=== PATIENT | female | born 1955 | race Caucasian/White ===

== ENCOUNTER 2022-05-08 08:17 | Outpatient (CLI) | payer BC, SELFPAY ==
--- NOTE | 2022-05-08 08:15 | CRLHL7_ITS ---
For Patients: As a result of the Century Cures Act, medical imaging exams and procedure reports are released immediately into your electronic medical record. You may view this report before your referring provider. If you have questions, please contact your health care provider. BILATERAL SCREENING MAMMOGRAM WITH COMPUTER-AIDED DETECTION AND TOMOSYNTHESIS TECHNIQUE: CC and MLO views were obtained. These mammographic images have been obtained using full-field digital technique. These mammographic images were interpreted with the benefit of computer-aided detection. Breast Tomosynthesis was used in this interpretation. COMPARISON FILM: 03/13/21, 03/01/20, 03/01/19. FINDINGS: The breasts are heterogeneously dense, which may obscure small masses IMPRESSION: There is no radiographic evidence for malignancy. ASSESSMENT: BI-RADS Category 1: Negative RECOMMENDATION: Routine screening mammogram in 1 year. A lay language report of this examination will be provided to the patient. Claude Solomon M.D. Diagnostic Radiologist [email or web address] ANTONELLA/Dictated by: Claude Solomon MD @ 05/08/2022 11:51:00 AM (Electronically Signed)
--- OUTSIDE RECORDS SUMMARY | 2022-05-08 08:19 | XMS_ITS | Clinical Summary ---
:1955 Author Organization [facility] [place] [address] Care Team Providers Name Role Phone Hiral Davalos MD Primary Care Provider Allergies Active Allergy Reactions Severity Noted Date Comments Sulfa (Sulfonamide Antibiotics) *Unknown 0 Medications Medication Sig Dispensed Refills Start Date End Date Status lisinopril-hydrochlor Take 1 tablet by 0 02/17/2020 Active othiazide (10-12.5 mouth once daily. mg) tablet (PRINZIDE; ZESTORETIC) metoprolol succinate Take 1 Tablet (25 90 Tablet 3 07/18/2021 Active (TOPROL XL) 25 mg mg) by mouth once Sustained-Release daily. tabletIndications: SVT (supraventricular tachycardia) (HC) apixaban (Eliquis) 5 Take 1 Tablet (5 180 tablet. 0 12/12/2021 Active mg tabletIndications: mg) by mouth in SVT (supraventricular the morning and 1 tachycardia) (HC) Tablet (5 mg) in the evening. Needs appt for further refills. Call [facility] for appt.. Active Problems Not on file Social History Tobacco Use Types Packs/Day Years Used Date Never Smoker Smokeless Tobacco: Never Used Alcohol Use Standard Drinks/Week Comments Yes 0 (1 standard drink = 0.6 oz pure alcoho l) occ Alcohol Habits Answer Date Recorded How often do you have a drink containing alcohol? Not asked How many drinks containing alcohol do you have on a typical Not asked day when you are drinking? How often do you have six or more drinks on one occasion? No t asked Comment: occ 05/21/2021 Sex Assigned at Date Recorded Female 07/16/2021 10:35 AM ENVIRONMENTAL SERVICES TECH Obstetrics History Last Filed Vital Signs Vital Sign Reading Time Taken Comments Blood Pressure 128/80 07/18/2021 9:32 AM ENVIRONMENTAL SERVICES TECH Pulse 96 07/18/2021 9:32 AM ENVIRONMENTAL SERVICES TECH Temperature 36.8 ??C (98.3 ??F) 05/21/2021 12:00 PM ENVIRONMENTAL SERVICES TECH Respiratory Rate 16 05/21/2021 12:00 PM ENVIRONMENTAL SERVICES TECH Oxygen Saturation 95% 07/18/2021 9:32 AM ENVIRONMENTAL SERVICES TECH Inhaled Oxygen Concentration - - Weight 68.5 kg (151 lb) 07/18/2021 9:32 AM ENVIRONMENTAL SERVICES TECH Height 167.6 cm (5' 5.98) 07/18/2021 9:32 AM ENVIRONMENTAL SERVICES TECH Body Mass Index 24.38 07/18/2021 9:32 AM ENVIRONMENTAL SERVICES TECH Plan of Treatment Health Maintenance Due Date Last Done Comments Tdap 1968 Depression screening for age 12+ 1969 HIV for age 15-65 1972 Hepatitis C screening for age 0611/29/1975 18-79 Tetanus booster 1977 Colonoscopy through age 75 2002 Lipids for age 45-75 2002 Mammogram for age 45-75 2002 Zoster (shingles) series for age 0611/29/2007 50+ (1 of 2) COVID-19 vaccine series (4 - 06/18/2021 04/23/2021, 021, Booster for Moderna series) 08/24/2020 Influenza for age 50-64 02/06/2022 BMI (ht and wt on same day) for 07/18/2022 07/18/2021, 04/08 age 18+ Pap test for age 21-65 02/08/2024 02/07/2021, 02/07/2021, 04/17/2015, Additional history exists Results Not on filefrom Last 3 Months Insurance Payer Benefit Plan / Subscriber ID Effective Dates Phone Addre ss Type Group BLUE [employer]OSS BL[employer] OF [id number] 2021-Presen [address] [facility] [place] [address] (Work) [id number] Care Teams Barrelhead Inspector Relationship Specialty Start Date End Date Hiral Davalos MD PCP - General Internal Medicine 04/17/21[address] [place] [address]
== END 2022-05-08 08:18 | disposition home or self-care (01) ==
LOC: MAMMO 08:18
PROVIDERS: PCP Internal Medicine; Visit Provider Internal Medicine
DX: Z12.31 Encounter for screening mammogram for malignant neoplasm of breast (principal)
CPT/HCPCS: 77063; 77067

== ENCOUNTER 2023-06-16 10:09 | Outpatient (CLI) | payer MEDICARE, OTHER, SELFPAY ==
--- NOTE | 2023-06-16 10:15 | CRLHL7_ITS ---
For Patients: As a result of the Century Cures Act, medical imaging exams and procedure reports are released immediately into your electronic medical record. You may view this report before your referring provider. If you have questions, please contact your health care provider. BILATERAL SCREENING MAMMOGRAM WITH COMPUTER-AIDED DETECTION AND TOMOSYNTHESIS TECHNIQUE: CC and MLO views were obtained. These mammographic images have been obtained using full-field digital technique. These mammographic images were interpreted with the benefit of computer-aided detection. Breast Tomosynthesis was used in this interpretation. COMPARISON FILM: 05/08/22, 03/13/21, 03/01/20. FINDINGS: The breasts are heterogeneously dense, which may obscure small masses IMPRESSION: There is no radiographic evidence for malignancy. ASSESSMENT: BI-RADS Category 1: Negative RECOMMENDATION: Routine screening mammogram in 1 year. A lay language report of this examination will be provided to the patient. Fritz Ludwig M.D. Diagnostic/Nuclear Medicine Radiologist [email or web address] ANTONELLA/Dictated by: Fritz Ludwig MD @ 06/16/2023 11:55:00 AM (Electronically Signed)
--- OUTSIDE RECORDS SUMMARY | 2023-06-16 10:18 | XMS_ITS | Clinical Summary ---
Author Name Unknown Organization [facility] Address [place], [place] [address] Care Team Providers Care Data Security Analyst Name Role Phone Hiral Davalos MD Primary Care Provider [phone] Allergies Active Allergy Reactions Criticality Noted Date Comments Sulfa (Sulfonamide Antibiotics) *Unknown 02/06 Medications Medication Sig Dispensed Refills Start Date End Date Status lisinopril-hydrochlo rothiazide (10-12.5 mg) tablet (PRINZIDE; ZESTORETIC) Take 1 tablet by mouth once daily. 0 02/17/2020 Active metoprolol succinate (TOPROL XL) 25 mg Sustained-Release tabletIndications:SV T (supraventricular tachycardia) Take 1 Tablet (25 mg) by mouth once daily. 90 Tablet 3 07/18/2021 Active apixaban (Eliquis) 5 mg tabletIndications:SV T (supraventricular tachycardia) Take 1 Tablet (5 mg) by mouth in the morning and 1 Tablet (5 mg) in the evening. Needs appt for further refills. Call [facility] for appt.. 180 tablet. 0 12/12/2021 Active Social History Tobacco Use Types Packs/Day Years Used Date Smoking Tobacco: Never Smokeless Tobacco: Never Alcohol Use Standard Drinks/Week Comments Yes 0 (1 standard drink = 0.6 oz pur e alcohol) occ Social Connections Answer Date Recorded Frequency of Communication with Friends and Fami ly Not on file 06/08/2021 Financial Resource Strain Answer Date R ecorded Difficulty of Paying Living Expenses Not on file 06/08/2021 Difficulty of Paying Living Expenses Not on file 06/08/2021 Sex and Gender Information Value Date Recorded Sex Assigned at Female 07/16/2021 10:35 AM ELECTROSTATIC PAINT OPERATOR Gender Identity Female 07/16/2021 10:35 AM ELECTROSTATIC PAINT OPERATOR Sexual Orientation Straight 07/16/2021 10 :35 AM ELECTROSTATIC PAINT OPERATOR Obstetrics History Last Filed Vital Signs Vital Sign Reading Time Taken Comments Blood Pressure 128/80 07/18/2021 9:32 AM ELECTROSTATIC PAINT OPERATOR Pulse 96 07/18/2021 9:32 AM ELECTROSTATIC PAINT OPERATOR Temperature 36.8 ??C (98.3 ??F) 05/21/2021 12:[address] Respiratory Rate 16 05/21/2021 12:00 PM ELECTROSTATIC PAINT OPERATOR Oxygen Saturation 95% 07/18/2021 9:32 AM ELECTROSTATIC PAINT OPERATOR Inhaled Oxygen Concentration - - Weight 68.5 kg (151 lb) 07/18/2021 9:32 AM ELECTROSTATIC PAINT OPERATOR Height 167.6 cm (5' 5.98) 07/18/2021 9:32 AM CS T Body Mass Index 24.38 07/18/2021 9:32 AM ELECTROSTATIC PAINT OPERATOR Plan of Treatment Health Maintenance Due Date Last Done Comments Tdap 1968 Depression screening for age 12+ 1969 HIV for age 15-65 1972 Hepatitis C screening for ag e 18-79 11/29/1975 Tetanus booster 1977 Colonoscopy through age 75 2002 Lipids for age 45-75 2002 Mammogram for age 45-75 2002 Zoster (shingles) series for age 50+ (1 of 2) 11/29/2007 BMI (ht and wt on same day) for age 18+ 07/18/2022 07/18/2021, 04/17/2021 DEXA/DXA scan for age 65+ 2022 Pneumococcal series for age 65+ (1 of 1 - PCV) 2022 COVID-19 vaccine series ( - 2022-24 season) 2023 04/23/2021, 09/21/2020, 08/24/2020 Influenza for age 65+ 02/06/2023 Pap test for age 21-65 02/08/2024 , 02/07/2021, 04/17/2015, Additional history exists Care Teams Data Security Analyst Relationship Specialty Start Date End Date Hiral Davalos MD [address] [place] [address] PCP - General Internal Medicine 04/17/21
== END 2023-06-16 10:10 | disposition home or self-care (01) ==
PROVIDERS: PCP Internal Medicine; Visit Provider Internal Medicine
DX: Z12.31 Encounter for screening mammogram for malignant neoplasm of breast (principal); R92.2 Inconclusive mammogram
CPT/HCPCS: 77063; 77067

== ENCOUNTER 2023-12-08 08:55 | Outpatient (CLI) | payer MEDICARE, OTHER, SELFPAY ==
--- OUTSIDE RECORDS SUMMARY | 2023-12-10 11:33 | XMS_ITS | Clinical Summary ---
Author Organization [facility] Address [place], [place] [address] Care Team Providers Care Liquified Natural Gas Specialist Name Role Phone Hiral Davalos MD Primary Care Provider [phone]- [phone] Allergies Active Allergy Reactions Criticality Noted Date Comments Sulfa (Sulfonamide Antibiotics) *Unknown 02/06 Medications Medication Sig Dispensed Refills Start Date End Date Status lisinopril-hydrochlo rothiazide (10-12.5 mg) tablet (PRINZIDE; ZESTORETIC) Take 1 tablet by mouth once daily. 0 02/17/2020 Active metoprolol succinate (TOPROL XL) 25 mg Sustained-Release tabletIndications:SV T (supraventricular tachycardia) (HC) Take 1 Tablet (25 mg) by mouth once daily. 90 Tablet 3 07/18/2021 Active apixaban (Eliquis) 5 mg tabletIndications:SV T (supraventricular tachycardia) (HC) Take 1 Tablet (5 mg) by mouth in the morning and 1 Tablet (5 mg) in the evening. Needs appt for further refills. Call [facility] for appt.. 180 tablet. 12/12/2021 Active Social History Tobacco Use Types [...] Sex Assigned at Female 07/16/2021 10:35 AM SPECIAL INSPECTOR Gender Identity Female 07/16/2021 10:35 AM SPECIAL INSPECTOR Sexual Orientation Straight 07/16/2021 10 :35 AM SPECIAL INSPECTOR Obstetrics History Last Filed Vital Signs Vital Sign Reading Time Taken Comments Blood Pressure 128/80 07/18/2021 9:32 AM SPECIAL INSPECTOR Pulse 96 07/18/2021 9:32 AM SPECIAL INSPECTOR Temperature 36.8 ??C (98.3 ??F) 05/21/2021 12:[address] Respiratory Rate 16 05/21/2021 12:00 PM SPECIAL INSPECTOR Oxygen Saturation 95% 07/18/2021 9:32 AM SPECIAL INSPECTOR Inhaled Oxygen Concentration - - Weight 68.5 kg (151 lb) 07/18/2021 9:32 AM SPECIAL INSPECTOR Height 167.6 cm (5' 5.98) 07/18/2021 9:32 AM CS T Body Mass Index 24.38 07/18/2021 9:32 AM SPECIAL INSPECTOR Plan of Treatment Health Maintenance Due Date Last Done Comments Tdap 1968 Depression screening for age 12+ 1969 Hepatitis C screening for age 18-79 11/29/1975 Tetanus booster 1977 Colonoscopy through age 75 2002 Lipids for age 45-75 2002 Mammogram for age 45-75 2002 Zoster (shingles) series for age 50+ (1 of 2) 11/29/2007 BMI (ht and wt on same day) for age 18+ 07/18/2022 07/18/2021, 04/17/2021 DEXA/DXA scan for age 65+ 2022 Pneumococcal series for age 65+ (1 of 1 - PCV) 2022 COVID-19 vaccine series (4 - 2022-24 season) 2023 04/23/2021, 09/21/2020, 08/24/2020 Influenza for age 65+ 02/07/2024 Care Teams Liquified Natural Gas Specialist Relationship Specialty Start Date End Date Hiral Davalos MD [address] [place] [address] PCP - General Internal Medicine 04/17/21
== END 2023-12-08 08:56 | disposition home or self-care (01) ==
LOC: NFLDREF 12-10 11:32
PROVIDERS: PCP Internal Medicine; Referring Provider Internal Medicine; Visit Provider Internal Medicine
DX: I10 Essential (primary) hypertension (principal); M85.80 Other specified disorders of bone density and structure, unspecified site
CPT/HCPCS: 80048; 82306

== ENCOUNTER 2024-07-01 09:10 | Outpatient (CLI) | payer MEDICARE, OTHER, SELFPAY | END 2024-07-01 09:11 | disposition home or self-care (01) | LOC: FBOREF 09:11 | PROVIDERS: PCP Internal Medicine; Visit Provider Physician Assistant | DX: M25.562 Pain in left knee (principal); M11.20 Other chondrocalcinosis, unspecified site; M25.462 Effusion, left knee | CPT/HCPCS: 89060 ==

== ENCOUNTER 2024-07-25 09:09 | Outpatient (CLI) | payer MEDICARE, OTHER, SELFPAY ==
--- NOTE | 2024-07-25 09:15 | CRLHL7_ITS ---
For Patients: As a result of the Century Cures Act, medical imaging exams and procedure reports are released immediately into your electronic medical record. You may view this report before your referring provider. If you have questions, please contact your health care provider. BILATERAL SCREENING MAMMOGRAM WITH COMPUTER-AIDED DETECTION AND TOMOSYNTHESIS TECHNIQUE: CC and MLO views were obtained. These mammographic images have been obtained using full-field digital technique. These mammographic images were interpreted with the benefit of computer-aided detection. Breast Tomosynthesis was used in this interpretation. COMPARISON FILM: 06/16/23, 05/08/22, 03/13/21. FINDINGS: The breasts are heterogeneously dense, which may obscure small masses. IMPRESSION: There is no radiographic evidence for malignancy. ASSESSMENT: BI-RADS Category 2: Benign RECOMMENDATION: Routine screening mammogram in 1 year. A lay language report of this examination will be provided to the patient. Claude Solomon M.D. Diagnostic Radiologist [email or web address] SP/Dictated by: Claude Solomon MD @ 08/01/2024 9:32:00 AM (Electronically Signed)
== END 2024-07-25 09:10 | disposition home or self-care (01) ==
LOC: MAMMO 09:10
PROVIDERS: PCP Internal Medicine; Visit Provider Internal Medicine
DX: Z12.31 Encounter for screening mammogram for malignant neoplasm of breast (principal); R92.333 Mammographic heterogeneous density, bilateral breasts
CPT/HCPCS: 77063; 77067

== ENCOUNTER 2024-12-19 10:44 | Outpatient (CLI) | payer MEDICARE, OTHER, SELFPAY | END 2024-12-19 10:45 | disposition home or self-care (01) | PROVIDERS: PCP Internal Medicine; Visit Provider Internal Medicine | DX: I10 Essential (primary) hypertension (principal); M85.80 Other specified disorders of bone density and structure, unspecified site | CPT/HCPCS: 80048; 82306 ==